=== PATIENT | male | born 1980 | race Caucasian/White ===

== ENCOUNTER 2016-12-14 18:46 | Emergency (ER) | payer MEDICAID ==
[2016-12-14 21:23] LABS: CALC OSMOLALITY 277 mosm/kg (275-300); CALCIUM 8.6 mg/dL (8.5-10.1); CARBON DIOXIDE 28.6 mmol/L (21.0-32.0); CHLORIDE - SERUM 105 mmol/L (98-107); CREATININE - SERUM 1.1 mg/dL (0.6-1.3); GLUCOSE 97 mg/dL (74-106); POTASSIUM - SERUM 3.5 mmol/L (3.5-5.1); SODIUM 141 mmol/L (136-145); UREA NITROGEN 5 mg/dL (7-18); eGFR NON AFRICAN AMERICAN 80 mL/min (90-120)
[2016-12-14 21:24] LABS: BASOPHILS 0.4 % (0-2); EOSINOPHILS 7.8 % (0-7); HEMATOCRIT 37.4 % (42.0-54.0); HEMOGLOBIN 13.9 g/dL (13.5-17.5); IMMATURE GRANULOCYTES 0.3 % (0-5); LYMPHOCYTES 45.3 % (15-50); MCH 33.4 pg (26.0-34.0); MCHC 37.2 g/dL (31.0-37.0); MCV 89.9 fL (80.0-100.0); MONOCYTES 9.3 % (2-11); NEUTROPHILS 36.9 % (40-80); PLATELET COUNT 194 10x3/uL (130-400); RBC 4.16 10x6/uL (4.20-6.10); RDW 11.9 % (11.5-14.5); WBC 6.7 10x3/uL (4.8-10.8)
[2016-12-14 21:27] LABS: APPEARANCE CLEAR (CLEAR); BILIRUBIN NEGATIVE (NEGATIVE); COLOR YELLOW (YELLOW); GLUCOSE NEGATIVE (NEGATIVE); KETONE NEGATIVE (NEGATIVE); LEUKOCYTE ESTERASE NEGATIVE (NEGATIVE); NITRITE NEGATIVE (NEGATIVE); PROTEIN NEGATIVE (NEGATIVE); SPECIFIC GRAVITY 1.015 (1.005-1.020); UROBILINOGEN NORMAL (NORMAL)
== END 2016-12-14 23:20 | disposition home or self-care (01) ==
LOC: D.ER 18:46
PROVIDERS: Nurse Practitioner Acute Care
DX: N23 Unspecified renal colic (principal)

== ENCOUNTER 2017-06-19 21:38 | Emergency (ER) | payer MEDICAID ==
[2017-06-19 22:34] LABS: BASOPHILS 0.5 % (0-2); EOSINOPHILS 4.9 % (0-7); HEMATOCRIT 36.7 % (42.0-54.0); HEMOGLOBIN 13.8 g/dL (13.5-17.5); IMMATURE GRANULOCYTES 0.1 % (0-5); LYMPHOCYTES 33.1 % (15-50); MCHC 37.6 g/dL (31.0-37.0); MCV 87.8 fL (80.0-100.0); MEAN PLATELET VOLUME 9.2 fL (7.4-10.4); MONOCYTES 9.2 % (2-11); NEUTROPHILS 52.2 % (40-80); PLATELET COUNT 159 10x3/uL (130-400); RBC 4.18 10x6/uL (4.20-6.10); RDW 11.7 % (11.5-14.5); WBC 9.2 10x3/uL (4.8-10.8)
[2017-06-19 22:45] LABS: ALBUMIN 4.5 g/dL (3.4-5.0); ALKALINE PHOSPHATASE 74 U/L (46-116); ALT (SGPT) 19 U/L (10-68); BILIRUBIN - TOTAL 0.66 mg/dL (0.2-1.3); CALC OSMOLALITY 278 mosm/kg (275-300); CALCIUM 8.7 mg/dL (8.5-10.1); CARBON DIOXIDE 27.5 mmol/L (21.0-32.0); CHLORIDE - SERUM 106 mmol/L (98-107); CREATININE - SERUM 1.1 mg/dL (0.6-1.3); GLUCOSE 90 mg/dL (74-106); POTASSIUM - SERUM 3.8 mmol/L (3.5-5.1); PROTEIN - SERUM 7.2 g/dL (6.4-8.2); SODIUM 140 mmol/L (136-145); UREA NITROGEN 13 mg/dL (7-18); eGFR NON AFRICAN AMERICAN 80 mL/min (90-120)
== END 2017-06-19 23:59 | disposition home or self-care (01) ==
LOC: D.ER 21:38
PROVIDERS: Family Medicine
DX: N39.0 Urinary tract infection, site not specified (principal); N23 Unspecified renal colic

== ENCOUNTER 2017-08-27 16:42 | Emergency (ER) | payer MEDICAID ==
[2017-08-27 17:07] LABS: APPEARANCE CLEAR (CLEAR); BILIRUBIN NEGATIVE (NEGATIVE); COLOR STRAW (YELLOW); GLUCOSE NEGATIVE (NEGATIVE); KETONE NEGATIVE (NEGATIVE); NITRITE NEGATIVE (NEGATIVE); PROTEIN NEGATIVE (NEGATIVE); UROBILINOGEN NORMAL (NORMAL)
== END 2017-08-27 19:23 | disposition home or self-care (01) ==
LOC: D.ER 16:42
PROVIDERS: Emergency Medicine
DX: R59.0 Localized enlarged lymph nodes (principal); L03.314 Cellulitis of groin; I10 Essential (primary) hypertension

== ENCOUNTER 2018-01-26 21:19 | Emergency (ER) | payer MEDICAID ==
[~2018-01-26] VITALS: Ht 172.7 cm; Wt 79.1 kg
[2018-01-26 21:23] VITALS: Ht 172.7 cm; Wt 79.1 kg
[2018-01-26 22:16] LABS: APPEARANCE CLEAR (CLEAR); BILIRUBIN NEGATIVE (NEGATIVE); COLOR YELLOW (YELLOW); GLUCOSE NEGATIVE (NEGATIVE); KETONE NEGATIVE (NEGATIVE); NITRITE NEGATIVE (NEGATIVE); PROTEIN NEGATIVE (NEGATIVE); UROBILINOGEN NORMAL (NORMAL)
[2018-01-26 22:19] LABS: BACTERIA FEW /hpf (NONE SEEN); EPITHELIAL CELLS RARE /hpf (0-5); MUCUS >1+ /lpf (NONE SEEN); RED CELLS - URINE 0-5 /hpf (0-5); WHITE CELLS - URINE 0-5 /hpf (0-5)
[2018-01-26] MEDS ORDERED: NORCO 7.5/325 T1 TA1 PO (22:25)
[2018-01-26] MEDS ORDERED: CIPRO250 MG PO (22:25)
[2018-01-26 22:45] VITALS: BP 133/77
== END 2018-01-26 22:46 | disposition home or self-care (01) ==
LOC: D.ER 21:19
PROVIDERS: Emergency Medicine
DX: M54.5 Low back pain (principal); R82.71 Bacteriuria; F17.200 Nicotine dependence, unspecified, uncomplicated

== ENCOUNTER 2018-08-20 12:33 | Emergency (ER) | payer MEDICAID ==
[~2018-08-20] VITALS: Ht 172.7 cm; Wt 79.5 kg
[~2018-08-20 12:33] MED LIST: CIPRO250 MG PO; NORCO 7.5/325 T1 TA1 PO
[2018-08-20 13:06] VITALS: Ht 172.7 cm; Wt 79.5 kg
[2018-08-20 13:39] LABS: BASOPHILS 0.5 % (0-2); EOSINOPHILS 6.7 % (0-7); HEMATOCRIT 38.7 % (42.0-54.0); HEMOGLOBIN 14.7 g/dL (13.5-17.5); IMMATURE GRANULOCYTES 0.2 % (0-5); LYMPHOCYTES 30.3 % (15-50); MCH 33.3 pg (26.0-34.0); MCV 87.8 fL (80.0-100.0); MEAN PLATELET VOLUME 8.8 fL (7.4-10.4); MONOCYTES 8.7 % (2-11); NEUTROPHILS 53.6 % (40-80); PLATELET COUNT 170 10x3/uL (130-400); RBC 4.41 10x6/uL (4.20-6.10); RDW 12.1 % (11.5-14.5); WBC 5.8 10x3/uL (4.8-10.8)
[2018-08-20 13:49] LABS: APPEARANCE CLEAR (CLEAR); BILIRUBIN NEGATIVE (NEGATIVE); COLOR STRAW (YELLOW); GLUCOSE NEGATIVE (NEGATIVE); KETONE NEGATIVE (NEGATIVE); NITRITE NEGATIVE (NEGATIVE); PROTEIN NEGATIVE (NEGATIVE); SPECIFIC GRAVITY 1.005 (1.005-1.020); UROBILINOGEN NORMAL (NORMAL)
[2018-08-20 13:57] LABS: ALBUMIN 4.1 g/dL (3.4-5.0); ALKALINE PHOSPHATASE 66 U/L (46-116); ALT (SGPT) 17 U/L (10-68); BILIRUBIN - TOTAL 1.09 mg/dL (0.2-1.3); CALC OSMOLALITY 278 mosm/kg (275-300); CARBON DIOXIDE 27.4 mmol/L (21.0-32.0); CHLORIDE - SERUM 106 mmol/L (98-107); CREATININE - SERUM 1.1 mg/dL (0.6-1.3); GLUCOSE 82 mg/dL (74-106); POTASSIUM - SERUM 3.9 mmol/L (3.5-5.1); PROTEIN - SERUM 7.5 g/dL (6.4-8.2); SODIUM 141 mmol/L (136-145); UREA NITROGEN 10 mg/dL (7-18); eGFR NON AFRICAN AMERICAN 79 mL/min (90-120)
[2018-08-20] MEDS ORDERED: TYLENOL W/CODEI1 TAB PO (15:29)
[2018-08-20 15:39] VITALS: BP 140/82
== END 2018-08-20 15:40 | disposition home or self-care (01) ==
LOC: D.ER 12:33
PROVIDERS: Family Medicine
DX: R10.9 Unspecified abdominal pain (principal)

== ENCOUNTER 2019-01-04 10:44 | Emergency (ER) | payer MEDICAID ==
[~2019-01-04] VITALS: Ht 172.7 cm; Wt 84.1 kg
[~2019-01-04 10:44] MED LIST changes: +TYLENOL W/CODEI1 TAB PO
[2019-01-04 10:55] VITALS: Ht 172.7 cm; Wt 84.1 kg
[2019-01-04 11:19] LABS: BASOPHILS 0.5 % (0-2); EOSINOPHILS 7.8 % (0-7); HEMATOCRIT 38.5 % (42.0-54.0); HEMOGLOBIN 14.6 g/dL (13.5-17.5); IMMATURE GRANULOCYTES 0.3 % (0-5); LYMPHOCYTES 28.6 % (15-50); MCH 33.3 pg (26.0-34.0); MCHC 37.9 g/dL (31.0-37.0); MCV 87.7 fL (80.0-100.0); MEAN PLATELET VOLUME 9.1 fL (7.4-10.4); MONOCYTES 8.6 % (2-11); NEUTROPHILS 54.2 % (40-80); PLATELET COUNT 171 10x3/uL (130-400); RBC 4.39 10x6/uL (4.20-6.10); RDW 12.1 % (11.5-14.5); WBC 6.2 10x3/uL (4.8-10.8)
[2019-01-04 11:34] LABS: ALBUMIN 3.8 g/dL (3.4-5.0); ALKALINE PHOSPHATASE 77 U/L (46-116); ALT (SGPT) 50 U/L (10-68); BILIRUBIN - TOTAL 1.05 mg/dL (0.2-1.3); CALC OSMOLALITY 277 mosm/kg (275-300); CALCIUM 9.2 mg/dL (8.5-10.1); CARBON DIOXIDE 28.4 mmol/L (21.0-32.0); CHLORIDE - SERUM 106 mmol/L (98-107); CREATININE - SERUM 1.2 mg/dL (0.6-1.3); GLUCOSE 118 mg/dL (74-106); PROTEIN - SERUM 7.2 g/dL (6.4-8.2); SODIUM 140 mmol/L (136-145); UREA NITROGEN 6 mg/dL (7-18); eGFR NON AFRICAN AMERICAN 72 mL/min (90-120)
[2019-01-04 11:39] LABS: APTT 29.7 SECONDS (22.8-39.4); INR 1.04 (0.85-1.17); PROTIME 13.1 SECONDS (11.6-15.0)
[2019-01-04 11:44] LABS: CKMB 0.4 U/L (0.0-3.6); CREATINE KINASE 68 UL (21-232); MAGNESIUM - SERUM 1.7 mg/dL (1.8-2.4)
[2019-01-04 11:45] LABS: TROPONIN-I < 0.017 ng/mL (0.000-0.060)
[2019-01-04 14:16] LABS: CKMB 0.2 U/L (0.0-3.6); CREATINE KINASE 61 UL (21-232); TROPONIN-I < 0.017 ng/mL (0.000-0.060)
[2019-01-04] MEDS ORDERED: OMEPRAZOLE40 MG PO (14:54)
[2019-01-04 15:06] VITALS: BP 135/84
== END 2019-01-04 15:06 | disposition home or self-care (01) ==
LOC: D.ER 10:44
PROVIDERS: Family Medicine
DX: K21.9 Gastro-esophageal reflux disease without esophagitis (principal)

== ENCOUNTER 2019-04-24 07:41 | Emergency (ER) | payer MEDICAID ==
[~2019-04-24] VITALS: Ht 172.7 cm; Wt 88.6 kg
[~2019-04-24 07:41] MED LIST changes: +OMEPRAZOLE40 MG PO
[2019-04-24 07:46] VITALS: Ht 172.7 cm; Wt 88.6 kg
[2019-04-24 08:11] LABS: BASOPHILS 0.5 % (0-2); EOSINOPHILS 6.9 % (0-7); IMMATURE GRANULOCYTES 0.3 % (0-5); LYMPHOCYTES 36.6 % (15-50); MCH 33.6 pg (26.0-34.0); MCHC 36.6 g/dL (31.0-37.0); MCV 91.9 fL (80.0-100.0); MEAN PLATELET VOLUME 9.1 fL (7.4-10.4); MONOCYTES 9.7 % (2-11); PLATELET COUNT 190 10x3/uL (130-400); RBC 4.46 10x6/uL (4.20-6.10); RDW 12.1 % (11.5-14.5); WBC 7.3 10x3/uL (4.8-10.8)
[2019-04-24 08:12] LABS: ANION GAP 13.1 mmol/L (8-16); CALCIUM 9.2 mg/dL (8.5-10.1); CARBON DIOXIDE 30.1 mmol/L (21.0-32.0); CREATININE - SERUM 1.2 mg/dL (0.6-1.3); POTASSIUM - SERUM 4.2 mmol/L (3.5-5.1)
[2019-04-24 08:18] LABS: ALBUMIN 3.9 g/dL (3.4-5.0); BILIRUBIN - TOTAL 0.41 mg/dL (0.2-1.3); PROTEIN - SERUM 7.5 g/dL (6.4-8.2)
[2019-04-24 08:20] LABS: APPEARANCE CLEAR (CLEAR); BACTERIA NONE SEEN /hpf (NEGATIVE); BILIRUBIN NEGATIVE (NEGATIVE); COLOR YELLOW (YELLOW); EPITHELIAL CELLS NSEEN /hpf (0-5); GLUCOSE NEGATIVE (NEGATIVE); KETONE NEGATIVE (NEGATIVE); NITRITE NEGATIVE (NEGATIVE); PROTEIN NEGATIVE (NEGATIVE); RED CELLS - URINE RARE /hpf (0-5); SPECIFIC GRAVITY 1.015 (1.005-1.020); UROBILINOGEN NORMAL (NORMAL); WHITE CELLS - URINE NSEEN /hpf (NEGATIVE)
[2019-04-24] MEDS ORDERED: ACETAMINOPHEN500 M1 PO (10:06)
[2019-04-24] MEDS ORDERED: MEDROL DOSE PACK4 MG PO (10:06)
[2019-04-24] MEDS ORDERED: CYCLOBENZAPRINE10 MG PO (10:06)
[2019-04-24 10:15] VITALS: BP 130/82
== END 2019-04-24 10:15 | disposition home or self-care (01) ==
LOC: D.ER 07:41
PROVIDERS: Family Medicine
DX: M54.9 Dorsalgia, unspecified (principal); M62.838 Other muscle spasm; N20.0 Calculus of kidney

== ENCOUNTER 2019-12-28 21:21 | Emergency (ER) | payer MEDICAID ==
[~2019-12-28] VITALS: Ht 172.7 cm; Wt 81.6 kg
[~2019-12-28 21:21] MED LIST changes: +ACETAMINOPHEN500 M1 PO; +CYCLOBENZAPRINE10 MG PO; +MEDROL DOSE PACK4 MG PO
[2019-12-28 22:27] VITALS: Ht 172.7 cm; Wt 81.6 kg
[2019-12-28] MEDS ORDERED: KEFLEX500 MG PO (23:19)
[2019-12-29 01:02] VITALS: BP 150/90
== END 2019-12-28 23:44 | disposition home or self-care (01) ==
LOC: D.ER 21:21
DX: S01.01XA Laceration without foreign body of scalp, initial encounter (principal); S09.90XA Unspecified injury of head, initial encounter; W22.8XXA Striking against or struck by other objects, initial encounter; Y93.9 Activity, unspecified; Y92.9 Unspecified place or not applicable; R51 Headache

== ENCOUNTER → 2020-07-29 10:05 | Outpatient (CLI) | payer MEDICAID ==
[2019-12-28 22:27] VITALS: BMI 29.7
[~2020-07-29 10:05] MED LIST changes: +KEFLEX500 MG PO
== END | disposition home or self-care (01) ==
LOC: D.US 10:05
PROVIDERS: ATTEND Nurse Practitioner
DX: M79.605 Pain in left leg (principal)